=== PATIENT | male | born 1960 | race Hispanic/Latino ===

== ENCOUNTER 2021-09-29 03:59 | Emergency (ER) | payer OTHER ==
[2021-09-29 05:10] LABS: Absolute Lymphocytes (CBC) 1.5 K/uL (0.7-4.9); Hematocrit 40.2 % (39.6-49.0); Protime INR 1.1
[2021-09-29 05:29] LABS: ALT/SGPT 26 U/L (12-78); AST/SGOT 15 U/L (15-37); Albumin 3.7 g/dL (3.4-5.0); Alkaline Phosphatase 64 U/L (45-117); BUN Blood Urea Nitrogen 20 mg/dL (7-18); Bicarbonate 27 mmol/L (21-32); Bilirubin Total 0.3 mg/dL (0.2-1.0); Glomerular Filtration Rate 69 ml/min (=/>90); Glucose Level 109 mg/dL (74-106); Magnesium 2.3 mg/dL (1.8-2.4); NT PRO-BNP 23 pg/mL (<125); Potassium 4.6 mmol/L (3.5-5.1); Protein, Total 7.6 g/dL (6.4-8.2); Sodium Level 139 mmol/L (136-145)
[2021-09-29 05:43] LABS: Bilirubin Direct < 0.1 mg/dL (0-0.2)
[2021-09-29] MEDS ORDERED: ASPIRIN 325 MG TAB ONE (05:57)
[2021-09-29 06:23] LABS: SARS-CoV-2 Antigen Rapid Res Negative (Negative)
--- NOTE | 2021-09-29 08:17 | RAD REPORT ---
EXAM DESCRIPTION: CT - Chest For Pe Angio - 09/29/2021 7:36 am CLINICAL HISTORY: Chest pain. chest pain COMPARISON: No comparisons TECHNIQUE: CT angiogram of the pulmonary arteries was performed with MIP. All CT scans are performed using dose optimization technique as appropriate and may include automated exposure control or mA/KV adjustment according to patient size. FINDINGS: No evidence of pulmonary thromboembolism. No acute aortic finding demonstrated. Mild diffuse COPD. No significant pericardial or pleural fluid. No concerning bony finding. IMPRESSION: No evidence of pulmonary thromboembolism. Mild COPD.
--- NOTE | 2021-09-29 08:34 | EDPHYS ---
Physician Documentation [facility] Name: Virgilio Cao Age: 60 yrs Sex: Male : 1960 Arrival Date: 09/29/2021 Time: 04:03 Bed 10 Private MD: ED Physician Fred Khoury HPI: 09/29 05:48 This 60 yrs old Male presents to ER via Ambulatory with complaints of Chest mh7 Pain. 05:48 The patient or guardian reports chest pain that is located primarily in the substernal mh7 area. Onset: just prior to arrival, today. The pain does not radiate. Associated signs and symptoms: Pertinent positives: cough, Pertinent negatives: abdominal pain, diaphoresis, dizziness, headache, lower extremity pain, lower extremity swelling, lightheadedness, nausea, near syncope, palpitations, recent travel, shortness of breath, syncope, vomiting. The chest pain is described as aching, dull. Duration: The patient or guardian reports multiple episodes, that are intermittent, that wax and wane, with no pattern. Modifying factors: The symptoms are alleviated by nothing. the symptoms are aggravated by nothing. Severity of pain: At its worst the pain was moderate today, in the emergency department the pain has improved moderately. Historical: - Allergies: 04:17 No Known Allergies; bb - Immunization history:: pt does not know which vaccine he received. - Social history:: Smoking status: Patient denies any tobacco usage or history of. ROS: 05:48 Constitutional: Negative for fever, chills, and weight loss, Eyes: Negative for injury, mh7 pain, redness, and discharge, ENT: Negative for injury, pain, and discharge, Neck: Negative for injury, pain, and swelling, Respiratory: Negative for shortness of breath, cough, wheezing, and pleuritic chest pain, Abdomen/GI: Negative for abdominal pain, nausea, vomiting, diarrhea, and constipation, Back: Negative for injury and pain, : Negative for injury, bleeding, discharge, and swelling, MS/Extremity: Negative for injury and deformity, Skin: Negative for injury, rash, and discoloration, Neuro: Negative for headache, weakness, numbness, tingling, and seizure, Psych: Negative for depression, anxiety, suicide ideation, homicidal ideation, and hallucinations, Allergy/Immunology: Negative for hives, rash, and allergies, Endocrine: Negative for neck swelling, polydipsia, polyuria, polyphagia, and marked weight changes, Hematologic/Lymphatic: Negative for swollen nodes, abnormal bleeding, and unusual bruising. Exam: 05:48 Constitutional: This is a well developed, well nourished patient who is awake, alert, mh7 and in no acute distress. Head/Face: Normocephalic, atraumatic. Eyes: Pupils equal round and reactive to light, extra-ocular motions intact. Lids and lashes normal. Conjunctiva and sclera are non-icteric and not injected. Cornea within normal limits. Periorbital areas with no swelling, redness, or edema. Neck: Trachea midline, no thyromegaly or masses palpated, and no cervical lymphadenopathy. Supple, full range of motion without nuchal rigidity, or vertebral point tenderness. No Meningismus. Chest/axilla: Normal chest wall appearance and motion. Nontender with no deformity. No lesions are appreciated. 05:48 Respiratory: Lungs have equal breath sounds bilaterally, clear to auscultation and percussion. No rales, rhonchi or wheezes noted. No increased work of breathing, no retractions or nasal flaring. Abdomen/GI: Soft, non-tender, with normal bowel sounds. No distension or tympany. No guarding or rebound. No evidence of tenderness throughout. Back: No spinal tenderness. No costovertebral tenderness. Full range of motion. Skin: Warm, dry with normal turgor. Normal color with no rashes, no lesions, and no evidence of cellulitis. MS/ Extremity: Pulses equal, no cyanosis. Neurovascular intact. Full, normal range of motion. Neuro: Awake and alert, GCS 15, oriented to person, place, time, and situation. Cranial nerves II-XII grossly intact. Motor strength 5/5 in all extremities. Sensory grossly intact. Cerebellar exam normal. Normal gait. Psych: Awake, alert, with orientation to person, place and time. Behavior, mood, and affect are within normal limits. 05:48 Cardiovascular: Rate: bradycardic, Rhythm: regular, Pulses: no pulse deficits are appreciated, Heart sounds: normal, normal S1and S2, Edema: is not appreciated, JVD: is not appreciated. Vital Signs: 04:15 BP 141 / 86 LA Supine; Pulse 51; Resp 17 S; Pulse Ox 98% on R/A; ha1 04:15 BP 152 / 90; Pulse 46; Resp 16 S; Temp 97.6(O); Pulse Ox 98% on R/A; Weight 86.18 kg bb (R); Height 5 ft. 9 in. (175.26 cm) (R); Pain 3/10; 05:05 BP 124 / 81; Pulse 53; Resp 16 S; Pulse Ox 98% on R/A; Pain 2/10; ha1 06:03 BP 140 / 86; Pulse 55; Resp 16 S; Pulse Ox 98% on R/A; ha1 07:30 BP 142 / 78; Pulse 48; Resp 17; Pulse Ox 99% ; ll1 08:00 BP 137 / 79; Pulse 43; Resp 15; Pulse Ox 99% ; ll1 08:30 BP 134 / 99; Pulse 42; Resp 14; Pulse Ox 99% ; ll1 09:00 BP 124 / 87; Pulse 52; Resp 17; Pulse Ox 98% ; ll1 04:15 Body Mass Index 28.06 (86.18 kg, 175.26 cm) MDM: 07:04 Transition of care: After a detail discussion of the patient's case, care is 7 transferred to [facility]. 07:49 Patient medically screened. ms3 08:33 Data reviewed: vital signs, nurses notes, lab test result(s), EKG, radiologic studies, ms3 and as a result, I will discharge patient. Test interpretation: by ED physician or midlevel provider: ECG. Counseling: I had a detailed discussion with the patient and/or guardian regarding: the historical points, exam findings, and any diagnostic results supporting the discharge/admit diagnosis, lab results, radiology results, the need for outpatient follow up, to return to the emergency department if symptoms worsen or persist or if there are any questions or concerns that arise at home. ED course: On reevaluation patient symptoms improved, patient is alert and oriented x4, no apparent distress, nontoxic, ambulatory in emergency department, tolerating p.o. . 09/29 04:23 Order name: Basic Metabolic Panel; Complete Time: 06:31 [facility] 09/29 04:23 Order name: CBC with Diff; Complete Time: 05:13 [facility] 09/29 04:23 Order name: LFT's; Complete Time: 06:31 [facility] 09/29 04:23 Order name: Magnesium; Complete Time: 06:31 [facility] 09/29 04:23 Order name: NT PRO-BNP; Complete Time: 06:31 [facility] 09/29 04:23 Order name: PT-INR; Complete Time: 05:13 [facility] 09/29 04:23 Order name: Troponin HS; Complete Time: 06:31 [facility] 09/29 04:23 Order name: XRAY Chest (1 view) [facility] 09/29 05:39 Order name: SARS RAPID [facility] 09/29 06:03 Order name: SARS-COV-2 Antigen Rapid; Complete Time: 06:31 [facility] 09/29 06:34 Order name: D-Dimer; Complete Time: 07:49 [facility] 09/29 06:50 Order name: CT Chest For PE Angio; Complete Time: 08:33 [facility] 09/29 04:23 Order name: EKG; Complete Time: 04:27 [facility] 09/29 04:23 Order name: Cardiac monitoring; Complete Time: 04:28 [facility] 09/29 04:23 Order name: EKG - Nurse/Tech; Complete Time: 04:28 [facility] 09/29 04:23 Order name: IV Saline Lock; Complete Time: 05:01 [facility] 09/29 04:23 Order name: Labs collected and sent; Complete Time: 05:01 [facility] 09/29 04:23 Order name: O2 Per Protocol; Complete Time: 04:28 [facility] 09/29 04:23 Order name: O2 Sat Monitoring; Complete Time: 04:28 7 Administered Medications: 05:55 Drug: Aspirin 325 mg Route: PO; ha1 06:03 Follow up: Response: No adverse reaction ha1 09:35 Not Given (Patient Refused): morphine 2 mg IVP once over 4 mins ll1 09:35 Not Given (Patient Refused): Zofran (Ondansetron) 4 mg IVP once; over 2 minutes ll1 Disposition Summary: 09/29/21 08:33 Discharge Ordered Location: Home ms3 Condition: Stable ms3 Diagnosis - Chest pain, unspecified ms3 - Essential (primary) hypertension ms3 Discharge Instructions: - Nonspecific Chest Pain, Adult ms3 - Discharge Summary Sheet ha1 Forms: - Medication Reconciliation Form ms3 - Thank You Letter ms3 - Antibiotic Education ms3 - Prescription Opioid Use ms3 - SBAR form ha1 Signatures: Dispatcher [employer] EDEdita Stallings, RN RN bb Antonio Schwarz, ASSEMBLER BICYCLE-C ASSEMBLER BICYCLE-Cla1 Fred Khoury DO DO ms3 Osbaldo Johnson MD MD 7 Ronna Ortega RN RN ha1 Elva Carrasco RN 1
--- NOTE | 2021-09-29 08:34 | ER ---
Nurse's Notes [facility] Name: Virgilio Cao Age: 60 yrs Sex: Male : 1960 Arrival Date: 09/29/2021 Time: 04:03 Bed 10 Private MD: Diagnosis: Chest pain, unspecified;Essential (primary) hypertension Presentation: 09/29 04:15 Chief complaint: Patient states: he started having some chest pain/tightness about an bb hour ago which does not seem to be going away. Coronavirus screen: At this time, the client does not indicate any symptoms associated with coronavirus-19. Ebola Screen: No symptoms or risks identified at this time. Initial Sepsis Screen: Does the patient meet any 2 criteria? No. Patient's initial sepsis screen is negative. Does the patient have a suspected source of infection? No. Patient's initial sepsis screen is negative. Risk Assessment: Do you want to hurt yourself or someone else? Patient reports no desire to harm self or others. Onset of symptoms was September 29, 2021. 04:15 Method Of Arrival: Ambulatory bb 04:15 Acuity: TORO 3 bb Historical: - Allergies: 04:17 No Known Allergies; bb - Immunization history:: pt does not know which vaccine he received. - Social history:: Smoking status: Patient denies any tobacco usage or history of. Screenin:05 Abuse screen: Denies threats or abuse. Denies injuries from another. ha1 04:05 Nutritional screening: No deficits noted. Tuberculosis screening: No symptoms or risk ha1 factors identified. Fall Risk None identified. Assessment: 04:16 General: Appears comfortable, Behavior is calm, cooperative. Pain: Complains of pain in ha1 chest Pain does not radiate. Pain at worst was 3 out of 10 on a pain scale. Quality of pain is described as pressure, Pain began 1 hour ago. Is continuous, Also complains of soreness on left arm. Neuro: Level of Consciousness is awake, alert, obeys commands, Oriented to person, place, time, situation, Gait is steady, Speech is normal. Cardiovascular: Reports chest pain, since one hour ago Heart tones S1 S2 present Capillary refill < 3 seconds Rhythm is sinus bradycardia. Respiratory: Airway is patent Respiratory effort is even, unlabored, Respiratory pattern is regular, symmetrical. Respiratory: No deficits noted. Denies shortness of breath. GI: No signs and/or symptoms were reported involving the gastrointestinal system. Abdomen is flat, non-distended. GI: No deficits noted. : No signs and/or symptoms were reported regarding the genitourinary system. EENT: No signs and/or symptoms were reported regarding the EENT system. EENT: No deficits noted. Derm: Skin is intact, Skin is pink, warm \T\ dry. Derm: No deficits noted. No signs and/or symptoms reported regarding the dermatologic system. Musculoskeletal: No deficits noted. Musculoskeletal: Circulation, motion, and sensation intact. Range of motion: intact in all extremities. 05:05 Reassessment: Patient and/or family updated on plan of care and expected duration. Pain ha1 level reassessed. Patient is alert, oriented x 3, equal unlabored respirations, skin warm/dry/pink. 06:03 Reassessment: Patient and/or family updated on plan of care and expected duration. Pain ha1 level reassessed. Patient is alert, oriented x 3, equal unlabored respirations, skin warm/dry/pink. Vital Signs: 04:15 BP 141 / 86 LA Supine; Pulse 51; Resp 17 S; Pulse Ox 98% on R/A; ha1 04:15 BP 152 / 90; Pulse 46; Resp 16 S; Temp 97.6(O); Pulse Ox 98% on R/A; Weight 86.18 kg bb (R); Height 5 ft. 9 in. (175.26 cm) (R); Pain 3/10; 05:05 BP 124 / 81; Pulse 53; Resp 16 S; Pulse Ox 98% on R/A; Pain 2/10; ha1 06:03 BP 140 / 86; Pulse 55; Resp 16 S; Pulse Ox 98% on R/A; ha1 07:30 BP 142 / 78; Pulse 48; Resp 17; Pulse Ox 99% ; ll1 08:00 BP 137 / 79; Pulse 43; Resp 15; Pulse Ox 99% ; ll1 08:30 BP 134 / 99; Pulse 42; Resp 14; Pulse Ox 99% ; ll1 09:00 BP 124 / 87; Pulse 52; Resp 17; Pulse Ox 98% ; ll1 04:15 Body Mass Index 28.06 (86.18 kg, 175.26 cm) ED Course: 04:03 Patient arrived in ED. ja2 04:04 Ronna Ortega, RN is Primary Nurse. ha1 04:05 Patient has correct armband on for positive identification. Placed in gown. Bed in low ha1 position. Call light in reach. Side rails up X 1. Client placed on continuous cardiac and pulse oximetry monitoring. NIBP monitoring applied. residential monitor on. Door closed. Noise minimized. Warm blanket given. 04:05 Inserted saline lock: 20 gauge in right antecubital area, using aseptic technique. ha1 Blood collected. Patient maintains SpO2 saturation greater than 95% on room air. 04:06 Osbaldo Johnson MD is Attending Physician. mh7 04:17 Triage completed. bb 04:17 Arm band placed on Patient placed in an exam room, on a stretcher, on vehicle monitor technician, bb on pulse oximetry. EKG completed in triage. Results shown to MD. 04:42 XRAY Chest (1 view) In Process Unspecified. EDMS 05:01 Basic Metabolic Panel Sent. ha1 05:01 CBC with Diff Sent. ha1 05:01 LFT's Sent. ha1 05:01 Magnesium Sent. ha1 05:01 NT PRO-BNP Sent. ha1 05:01 PT-INR Sent. ha1 05:01 Troponin HS Sent. ha1 06:41 SARS RAPID Sent. ha1 06:42 D-Dimer Sent. ha1 07:38 CT Chest For PE Angio In Process Unspecified. EDMS 07:48 Attending Physician role handed off by Osbaldo Johnson MD ms3 07:48 Fred Khoury DO is Attending Physician. ms3 09:20 No provider procedures requiring assistance completed. IV discontinued, intact, ll1 bleeding controlled, No redness/swelling at site. Pressure dressing applied. Administered Medications: 05:55 Drug: Aspirin 325 mg Route: PO; ha1 06:03 Follow up: Response: No adverse reaction ha1 09:35 Not Given (Patient Refused): morphine 2 mg IVP once over 4 mins ll1 09:35 Not Given (Patient Refused): Zofran (Ondansetron) 4 mg IVP once; over 2 minutes ll1 Medication: 09:20 VIS not applicable for this client. ll1 Outcome: 08:33 Discharge ordered by . ms3 09:21 Patient left the ED. ll1 09:21 Discharged to home ambulatory. ll1 09:21 Condition: stable 09:21 Discharge instructions given to patient, Instructed on discharge instructions, follow up and referral plans. Demonstrated understanding of instructions, follow-up care. Signatures: Dispatcher [employer] Edita Silva, RN RN bb Elva Carrasco RN RN ll1 Fred Khoury DO DO ms3 Osbaldo Johnson MD MD 7 Dayna Dudley [facility] Ronna Ortega RN RN ha1
[2021-09-29 09:27] VITALS: TEMP 97.6; O2SAT 98
[2021-09-29 09:31] VITALS: BP 140/86
--- NOTE | 2021-09-29 10:27 | RAD REPORT ---
EXAM DESCRIPTION: Chest Single View CLINICAL HISTORY: 60 years Male CHEST PAIN COMPARISON: None FINDINGS: Lung volumes adequate. Cardiac silhouette is normal. No pneumothorax. No large pleural effusion. No focal consolidation. No acute bony finding. IMPRESSION: No acute cardiopulmonary findings. Electronically signed by: Anne-Marie Esparza MD 09/29/2021 4:56 AM CDT Due to temporary technical issues with the PACS/Fluency reporting system, reports are being signed by the in house radiologists without review as a courtesy to insure prompt reporting. The interpreting radiologist is fully responsible for the content of the report.
--- NOTE | 2021-09-30 14:29 | EKG ---
Test Date: 2021-09-29 Test Time: 04:14:17 Staffing Analyst: SINDY MEASUREMENT RESULTS: Intervals: Rate: 46 CA: 208 QRSD: 92 QT: 430 QTc: 376 [place]: P: 56 CA: 208 QRS: 22 T: 45 INTERPRETIVE STATEMENTS: Marked sinus bradycardia Abnormal ECG Compared to ECG 03/25/2006 06:36:26 No significant changes Electronically Signed On 09-30-21 14:28:17 CDT by Phil Noonan
== END 2021-09-29 09:21 | disposition home or self-care (01) ==
LOC: ER 03:59
DX: R07.89 Other chest pain (principal); I10 Essential (primary) hypertension; Z20.822 Contact with and (suspected) exposure to COVID-19
CPT/HCPCS: 85025; 80048; 36415; 83735; 85610; 85379; 80076; 84484; 83880; 71275; 71045; 87811; Q9967; 93005